=== PATIENT | male | born 1980 | race Caucasian/White ===

== ENCOUNTER 2019-09-01 10:15 | Emergency (ER) | payer OTHER ==
[~2019-09-01] VITALS: Ht 177.8 cm; Wt 97.5 kg
[2019-09-01 10:43] LABS: ABSOLUTE BASOPHILS 0.1 thou/uL (0.0-0.2); ABSOLUTE EOSINOPHILS 0.4 thou/uL (0.0-0.7); ABSOLUTE LYMPHOCYTES 3.4 thou/uL (0.8-5.3); ABSOLUTE MONOCYTES 1.1 thou/uL (0.0-1.2); BASOPHILS 0.7 %; EOSINOPHILS 2.8 %; HEMATOCRIT 48.1 % (42.0-52.0); HEMOGLOBIN 16.6 gm/dL (14.0-18.0); LYMPHOCYTES 24.5 %; MCH 31.5 pg (26.0-34.0); MCHC 34.5 g/dL (28.0-37.0); MCV 91.4 fL (80.0-100.0); MONOCYTES 8.2 %; MPV 9.1 fl. (7.2-11.1); NUCLEATED RBCS 0 /100WBC; PLATELET COUNT* 288 thou/uL (150-400); POLYS 63.8 %; RBC 5.26 mil/uL (4.50-6.00); RDW-CV 13.8 % (10.5-14.5)
[2019-09-01 10:48] LABS: CALCIUM 8.5 mg/dL (8.5-10.1); CREATININE 0.9 mg/dL (0.6-1.3); POTASSIUM 3.8 mmol/L (3.5-5.1)
[2019-09-01 10:52] LABS: ALBUMIN 3.6 g/dL (3.4-5.0); TOTAL BILIRUBIN 0.4 mg/dL (<0.1-1.0); TOTAL PROTEIN 7.4 g/dL (6.4-8.2)
[2019-09-01 10:59] LABS: INFLUENZA A ANTIGEN Negative (Negative); INFLUENZA B ANTIGEN Negative (Negative)
[2019-09-01] MEDS ORDERED: VENTOLIN HFA 1818 GM INH (12:14)
[2019-09-01] MEDS ORDERED: DOXYCYCLINE 10100 MG PO (12:14)
--- NOTE | 2019-09-05 13:56 | EKG ---
[place] [address] ELECTROCARDIOGRAM REPORT Name: SANDEEP WYNNE Room: [facility]#: [id number] Admission: 09/01/19 Attend Phys: Discharge: 09/01/19 Date of : 82 Date of Service: 09/01/19 1020 Report #: [id number] THIS REPORT FOR: cc: FAM - No family physician/PCP FAM - No family physician/PCP Chris Bills MD [facility] ~ THIS REPORT FOR: //name// [facility] ED Test Date: 2019-09-01 Test Time: 10:20:28 Pat Name: SANDEEP WYNNE Department: Room: Gender: M Director Of Corporate Strategy: : 1980 Requested By: Dahlia Good Order Number: [id number] : Chris Bills Measurements Intervals [place] Rate: 62 P: 39 [place]: 182 QRS: 21 QRSD: 94 T: 46 QT: 408 QTc: 415 Interpretive Statements Sinus rhythm ST elev, probable normal early repol pattern No previous ECG available for comparison Electronically Signed On 09-02-2019 10:59:02 RENTAL MANAGER by Chris Bills [email or web address] <ELECTRONICALLY SIGNED> By: Chris Bills MD, [facility] 09/02/19 1059 1020 1020 Chris Bills MD, [facility] /EPI
== END 2019-09-01 12:24 | disposition home or self-care (01) ==
LOC: M.ERS 10:15
PROVIDERS: Nurse Practitioner Family
DX: J18.9 Pneumonia, unspecified organism (principal); R55 Syncope and collapse; F17.210 Nicotine dependence, cigarettes, uncomplicated

== ENCOUNTER 2019-10-17 14:57 | Emergency (ER) | payer OTHER ==
[~2019-10-17] VITALS: Ht 180.3 cm; Wt 97.5 kg
[~2019-10-17 14:57] MED LIST: DOXYCYCLINE 10100 MG PO; VENTOLIN HFA 1818 GM INH
[2019-10-17 15:32] LABS: ABSOLUTE BASOPHILS 0.1 thou/uL (0.0-0.2); ABSOLUTE EOSINOPHILS 0.2 thou/uL (0.0-0.7); ABSOLUTE LYMPHOCYTES 2.2 thou/uL (0.8-5.3); ABSOLUTE MONOCYTES 0.9 thou/uL (0.0-1.2); ABSOLUTE NEUTROPHILS 8.9 thou/uL (1.6-8.1); BASOPHILS 1.2 %; EOSINOPHILS 1.9 %; HEMATOCRIT 46.9 % (42.0-52.0); HEMOGLOBIN 16.2 gm/dL (14.0-18.0); LYMPHOCYTES 17.7 %; MCH 31.5 pg (26.0-34.0); MCHC 34.5 g/dL (28.0-37.0); MCV 91.2 fL (80.0-100.0); MONOCYTES 7.1 %; MPV 8.8 fl. (7.2-11.1); NUCLEATED RBCS 0 /100WBC; PLATELET COUNT* 252 thou/uL (150-400); POLYS 72.1 %; RBC 5.14 mil/uL (4.50-6.00); RDW-CV 13.9 % (10.5-14.5); WBC 12.3 thou/uL (4.0-11.0)
[2019-10-17 15:40] LABS: INFLUENZA A ANTIGEN Negative (Negative); INFLUENZA B ANTIGEN Negative (Negative)
[2019-10-17 15:45] LABS: CALCIUM 8.9 mg/dL (8.5-10.1); CREATININE 0.9 mg/dL (0.6-1.3); POTASSIUM 3.9 mmol/L (3.5-5.1)
[2019-10-17 15:47] LABS: APTT 29.9 Seconds (25.0-31.3); INR 1.1
[2019-10-17 15:49] LABS: ALBUMIN 3.9 g/dL (3.4-5.0); TOTAL BILIRUBIN 0.3 mg/dL (<0.1-1.0); TOTAL PROTEIN 7.7 g/dL (6.4-8.2)
[2019-10-17 16:51] VITALS: BP 137/86
--- NOTE | 2019-10-18 08:53 | EKG ---
[place] [address] ELECTROCARDIOGRAM REPORT Name: SANDEEP WYNNE Room: [facility]#: [id number] Admission: 10/17/19 Attend Phys: Discharge: 10/17/19 Date of : 82 Date of Service: 10/17/19 1515 Report #: [id number] THIS REPORT FOR: //name// [facility] ED Test Date: 2019-10-17 Test Time: 15:15:36 Pat Name: SANDEEP WYNNE Department: Room: Gender: Meat Inspector: MD : 1980 Requested By: Alexander Bland Order Number: [id number] MD: Chris Bills Measurements Intervals [place] Rate: 87 P: 36 [place]: 168 QRS: -8 QRSD: 96 T: 47 QT: 354 QTc: 426 Interpretive Statements Sinus rhythm RSR' in V1 or V2, probably normal variant ST elev, probable normal early repol pattern Compared to ECG 09/01/2019 10:20:28 RSR' in V1 or V2 now present ST (T wave) deviation still present Electronically Signed On 10-18-2019 8:52:11 CDT by Chris Bills [email or web address] <ELECTRONICALLY SIGNED> By: Chris Bills MD, FACC 10/18/19 0852 1515 1515 Chris Bills MD, FAC /EPI
== END 2019-10-17 16:53 | disposition home or self-care (01) ==
LOC: M.ERS 14:57
PROVIDERS: Family Medicine
DX: R55 Syncope and collapse (principal)